=== PATIENT | female | born 1980 | race Caucasian/White ===

== ENCOUNTER 2016-10-13 10:39 | Emergency (ER) | payer OTHER ==
--- NOTE | 2016-10-13 11:47 | ER Document Report ---
ED General - General Chief Complaint: Neck and Upper Back Pain Stated Complaint: BACK PAIN Time Seen by Provider: 10/13/16 11:45 Mode of Arrival: Ambulatory Information source: Patient Notes: Patient's a 35-year-old white female who presents with mid thoracic "spine" pain. She states that started yesterday as an ache and progressively worsened to a sharp stabbing pain that woke her up around 1 AM this morning. She states she took a hydrocodone at that time and she is unsure for provided relief but she was able to get back to sleep. He states later when she woke up she had to have her son help her out of bed. She was seen at urgent care who did x-rays and told her that everything was fine and was referred over to the emergency room for further evaluation. She denies any fever, chills, numbness, weakness, paresthesias to extremities, bowel or bladder incontinence, saddle paresthesias , chest pain or shortness of breath. Denies any recent falls, injuries, heavy lifting. TRAVEL OUTSIDE OF THE [place] IN LAST 30 DAYS: No - Related Data Allergies/Adverse Reactions: No Known Allergies Allergy (Verified 10/13/16 10:40) Past Medical History - General Information source: Patient - Social History Smoking Status: Unknown if Ever Smoked Family History: Other Patient has suicidal ideation: No Patient has homicidal ideation: No Neurological Medical History: Reports: Hx Migraine Renal/ Medical History: Denies: Hx Peritoneal Dialysis Past Surgical History: Reports: Hx Orthopedic Surgery - knee - Immunizations Hx Diphtheria, Pertussis, Tetanus Vaccination: Yes Review of Systems - Review of Systems Constitutional: See HPI EENT: No symptoms reported Cardiovascular: No symptoms reported Respiratory: No symptoms reported Gastrointestinal: No symptoms reported Genitourinary: No symptoms reported Female Genitourinary: No symptoms reported Musculoskeletal: See HPI Skin: No symptoms reported Hematologic/Lymphatic: No symptoms reported Neurological/Psychological: See HPI Physical Exam - Vital signs Vitals: Temp Pulse Resp BP Pulse Ox 98.4 F 105 H 18 145/81 H 97 10/13/16 10:41 10/13/16 10:41 10/13/16 10:41 10/13/16 10:41 10/13/16 10:41 Interpretation: Hypertensive - Notes Notes: PHYSICAL EXAM: CONSTITUTIONAL: Alert and oriented, well-appearing and in no acute distress. HENT: Normocephalic, atraumatic. Trachea midline. Uvula midline. Moist mucous membranes. EYES: Pupils equal round and reactive to light, EOM intact. Sclera anicteric, conjunctiva are normal. No entrapment. NECK: supple without lymphadenopathy. No cervical midline tenderness no paraspinous muscle spasms. No step-offs or deformities. ROM intact. HEART: Regular rate and rhythm without murmurs. LUNGS: CTAB and equal. No wheezes, rales or rhonchi. GI: Normactive bowel sounds. Nontender, non-distended. No organomegaly. no CVAT. BACK: Thoracic midline tenderness to palpation along T3-T5 , no paraspinous spasm, 5+/5 strengths in all 4 extremities, DTRs 2+, SLR -. EXTREMITIES: Normal range of motion, no pitting edema. No cyanosis. Cap Refill < 3 seconds. NEURO: Cranial nerves grossly intact. Normal sensory/motor exams. Sensation to soft touch intact. PSYCH: Normal mood, normal affect. SKIN: Warm and dry. Normal turgor. No rashes or lesions noted. Course - Re-evaluation Re-evalutation: 10/13/16 12:18 Patient seen and examined. No focal neuro deficits on exam. Tender to palpation of thoracic spine T3 through T5. No step-offs or deformities. Minimal paraspinous muscle spasms. Range of motion in upper and lower extremities intact. Given oral pain medication here. 10/13/16 13:21 Reviewed thoracic spine imaging studies - negative for acute abnormalities. Discussed results with patient - advised that we ruled out emergent conditions such as epidural abscess, spinal cord compression, fracture, dislocation, or cauda equine syndrome. Advised patient to follow-up with PMD for referral for MRI. We will provide prescriptions for anti-inflammatories and muscle relaxers. At this time, will discharge with return precautions and follow-up recommendations. Verbal discharge instructions given at the bedside and opportunity for questions given. Medication warnings reviewed. Patient is in agreement with this plan and has verbalized understanding of return precautions and the need for primary care follow-up in the next 24-72 hours. - Vital Signs Vital signs: Temp Pulse Resp BP Pulse Ox 98.4 F 105 H 18 145/81 H 97 10/13/16 10:41 10/13/16 10:41 10/13/16 10:41 10/13/16 10:41 10/13/16 10:41 Discharge - Discharge Clinical Impression: Mid-back pain, acute Additional Instructions: BACK PAIN: Three out of every four people will have an episode of disabling back pain during their lifetime. Most commonly the pain is due to straining of the muscles and ligaments in the low back. Usual treatment includes: (1) Rest on a firm surface. Avoid lying on your stomach. (2) Ice pack the painful area. After a few days, gentle heat may be used intermittently to relax the area, or ice packs can be continued. (3) Medication may be needed -- muscle relaxers and antiinflammatory medicines are commonly used. (4) As the back improves, exercises are prescribed to strengthen the back and abdominal muscles. Your doctor will advise you on the proper care for your back at each stage in your recovery. You may be better in a few days -- or healing may take several weeks. If new symptoms of a "herniated disc" (radiation of pain, numbness, or tingling down the back of the leg or weakness in the leg) occur, you should be re-examined. Further testing may be necessary. ORAL NARCOTIC MEDICATION: You have been given a prescription for pain control. This medication is a narcotic. It's best taken with food, as nausea can result if taken on an empty stomach. Don't operate machinery or drive within six hours of taking this medication. Do not combine this medicine with alcohol, or with any medication which can cause sedation (such as cold tablets or sleeping pills) unless you get permission from the physician. Narcotics tend to cause constipation. If possible, drink plenty of fluids and eat a diet high in fiber and fruits. Please be aware that prescription narcotics also have the potential for abuse. People become addicted to these medications because of the general sense of wellbeing that they induce. This feeling along with a significant reduction in tension, anxiety, and aggression provides a stimulating seductive quality to these drugs. Once your pain is under control, we encourage you to discard your unused narcotics. MUSCLE RELAXERS: Muscle relaxing medications are usually prescribed for acute muscle spasm or injury to the neck and back. They are often combined with antiinflammatory pain medication for increased relief. You may stop the muscle relaxer when the pain and stiffness have improved. Start the medication again if spasms recur. Muscle relaxers may cause drowsiness, especially with the first dose. Do not operate machinery or drive while under the effects of the medication. Most muscle relaxers last up to 24 hours. Do not combine the medication with alcohol. ICE PACKS: Apply ice packs frequently against the painful area. Many different schedules are recommended, such as "20 minutes on, 20 minutes off" or "one hour ice, two hours rest." If you need to work, you may need to go longer between ice treatments. You should plan to have the area ice packed AT LEAST one fourth of the time. The ice should be applied over the wrap, tape, or splint, or over a layer of cloth -- not directly against the skin. Some ice bags have a built-in cloth and can be put directly on the skin. WARM PACKS: After approximately two days, apply gentle heat (such as a heating pad or hot water bottle) for about 20 to 30 minutes about every two hours -- at least four times daily. Warmth and elevation will help you make a more rapid recovery , and will ease the pain considerably. Do not use HOT heat, and never apply heat for longer than 30 minutes. The continuous heat can invisibly damage skin and muscles -- even when no burn is seen on the surface. Damaged muscles can make you MORE sore. FOLLOW-UP CARE: If you have been referred to a physician for follow-up care, call the physician s office for an appointment as you were instructed or within the next two days. If you experience worsening or a significant change in your symptoms, notify the physician immediately or return to the Emergency Department at any time for re-evaluation. Prescriptions: Oxycodone HCl/Acetaminophen [Percocet 5-325 mg Tablet] 1 tab PO Q6HP PRN #10 tablet PRN Reason: Diclofenac Sodium [Voltaren] 100 gm TP TID #1 gel..gm. Methocarbamol [Robaxin 500 mg Tablet] 500 mg PO TID #20 tablet Forms: Elevated Blood Pressure Referrals: PEGGY MINAYA FNP-C [Primary Care Provider] - Follow up in 3-5 days
[2016-10-13] MEDS ORDERED: OXYCODONE-ACETAMINOPHEN 5-325 MG TABLET PO ONE (12:14)
[2016-10-13 13:36] VITALS: BP 124/79
== END 2016-10-13 13:37 | disposition home or self-care (01) ==
LOC: ER 10:39
DX: M54.9 Dorsalgia, unspecified (principal); M54.2 Cervicalgia; M54.6 Pain in thoracic spine
CPT/HCPCS: 72070; 99283

== ENCOUNTER 2016-10-27 13:43 | Emergency (ER) | payer OTHER ==
[2016-10-27] MEDS ORDERED: METOCLOPRAMIDE HCL INJ/PF 10 MG/2 ML SDV IV ONE (14:44)
[2016-10-27] MEDS ORDERED: DIPHENHYDRAMINE HCL 50 MG/ML VIAL IV ONE (14:44)
[2016-10-27] MEDS ORDERED: KETOROLAC TROMETHAMINE INJ/PF 30 MG/1 ML SDV IV ONE (14:44)
[2016-10-27] MEDS ORDERED: NORMAL SALINE 1000 ML 1,000 ML IV ONE (14:44)
--- NOTE | 2016-10-27 14:46 | ER Document Report ---
ED Medical Screen (RME) - General Chief Complaint: Headache Stated Complaint: HEADACHE Time Seen by Provider: 10/27/16 14:41 Mode of Arrival: Wheelchair Information source: Patient Notes: pt c/o migraine AMANDA that started gradually yesterday and worsened today. Pt reports AMANDA is typical of usual migraines. Pt c/o photo/phonophobia. Pt reports n /v yesterday, none today. Pt took fioricet at 10 without relief hx Migraine TRAVEL OUTSIDE OF THE [place] IN LAST 30 DAYS: No - Related Data Allergies/Adverse Reactions: No Known Allergies Allergy (Verified 10/27/16 14:40) Past Medical History Neurological Medical History: Reports: Hx Migraine Renal/ Medical History: Denies: Hx Peritoneal Dialysis Past Surgical History: Reports: Hx Nose Surgery, Hx Orthopedic Surgery - knee - Immunizations Hx Diphtheria, Pertussis, Tetanus Vaccination: Yes Physical Exam - Vital signs Vitals: Temp Pulse Resp BP Pulse Ox 97.7 F 83 18 124/80 99 10/27/16 13:52 10/27/16 13:52 10/27/16 13:52 10/27/16 13:52 10/27/16 13:52 - Neurological Neuro grossly intact: Yes Lindstrom Coma Scale Eye Opening: Spontaneous Lindstrom Coma Scale Verbal: Oriented Lindstrom Coma Scale Motor: Obeys Commands Ruddy Coma Scale Total: 15 Course - Vital Signs Vital signs: Temp Pulse Resp BP Pulse Ox 97.7 F 83 18 124/80 99 10/27/16 13:52 10/27/16 13:52 10/27/16 13:52 10/27/16 13:52 10/27/16 13:52
[2016-10-27] MEDS ORDERED: ONDANSETRON 4 MG TAB.RAPDIS PO ONE (16:37)
[2016-10-27] MEDS ORDERED: NALBUPHINE HCL INJ 10 MG/1 ML AMPULE INJ ONE (16:38)
--- NOTE | 2016-10-27 16:43 | ER Document Report ---
ED Headache - General Chief Complaint: Headache Stated Complaint: HEADACHE Time Seen by Provider: 10/27/16 14:41 Mode of Arrival: Wheelchair Information source: Patient TRAVEL OUTSIDE OF THE [place] IN LAST 30 DAYS: No - HPI Patient complains to provider of: "Migraine" Onset: Just prior to arrival Onset was: Gradual, Other - This is a 35-year-old female presented to the emergency room today stating she had a migraine she has a history of migraines is that this migraine is the same as all her other ones that is frontal in nature she did have some nausea with it. - Related Data Allergies/Adverse Reactions: No Known Allergies Allergy (Verified 10/27/16 14:40) Past Medical History - General Information source: Patient - Social History Smoking Status: Current Every Day Smoker Cigarette use (# per day): No Chew tobacco use (# tins/day): No Smoking Education Provided: No Family History: Other Neurological Medical History: Reports: Hx Migraine Renal/ Medical History: Denies: Hx Peritoneal Dialysis Past Surgical History: Reports: Hx Nose Surgery, Hx Orthopedic Surgery - knee - Immunizations Hx Diphtheria, Pertussis, Tetanus Vaccination: Yes Review of Systems - Review of Systems Constitutional: No symptoms reported EENT: No symptoms reported Cardiovascular: No symptoms reported Respiratory: No symptoms reported Gastrointestinal: No symptoms reported Genitourinary: No symptoms reported Female Genitourinary: No symptoms reported Musculoskeletal: No symptoms reported Skin: No symptoms reported Hematologic/Lymphatic: No symptoms reported Neurological/Psychological: No symptoms reported Physical Exam - Vital signs Vitals: Temp Pulse Resp BP Pulse Ox 97.7 F 83 18 124/80 99 10/27/16 13:52 10/27/16 13:52 10/27/16 13:52 10/27/16 13:52 10/27/16 13:52 Interpretation: Normal - General General appearance: Appears well, Alert - HEENT Head: Normocephalic, Atraumatic Eyes: Normal Pupils: PERRL - Respiratory Respiratory status: No respiratory distress Chest status: Nontender Breath sounds: Normal Chest palpation: Normal - Cardiovascular Rhythm: Regular Heart sounds: Normal auscultation Murmur: No - Abdominal Inspection: Normal Distension: No distension Bowel sounds: Normal Tenderness: Nontender Organomegaly: No organomegaly - Back Back: Normal, Nontender - Extremities General upper extremity: Normal inspection, Nontender, Normal color, Normal ROM , Normal temperature General lower extremity: Normal inspection, Nontender, Normal color, Normal ROM , Normal temperature, Normal weight bearing. No: Mariam's sign - Neurological Neuro grossly intact: Yes Cognition: Normal Orientation: AAOx4 Ruddy Coma Scale Eye Opening: Spontaneous [place] Coma Scale Verbal: Oriented [place] Coma Scale Motor: Obeys Commands Ruddy Coma Scale Total: 15 Speech: Normal Motor strength normal: LUE, RUE, LLE, RLE Sensory: Normal - Psychological Associated symptoms: Normal affect, Normal mood - Skin Skin Temperature: Warm Skin Moisture: Dry Skin Color: Normal Course - Re-evaluation Re-evalutation: 10/27/16 16:42 As no fever No photophobia No nuchal rigidity No gross emesis. No petechiae. States that this is the same headache that she always has frontal in nature associated with some nausea - Vital Signs Vital signs: Temp Pulse Resp BP Pulse Ox 97.7 F 83 18 124/80 99 10/27/16 13:52 10/27/16 13:52 10/27/16 13:52 10/27/16 13:52 10/27/16 13:52 Discharge - Discharge Disposition: HOME, SELF-CARE Instructions: Headache ([facility]), Pain Medication Injection ([facility]) Additional Instructions: Headache The physician does not feel that the headache you are experiencing has a serious underlying cause. Most headaches are due to emotional stress, with resultant muscle tension (tension headache). Occasionally, headaches are secondary to changes in the blood vessels of the scalp (vascular headache and migraine headache). Sometimes, a headache is the first symptom of another developing illness, such as a viral infection. You have no evidence of stroke, bleeding, meningitis, or other serious cause of your headache. The treatment of headaches varies with the severity and cause of the pain. Not all headaches need pain shots. In fact, there is evidence that using narcotics for headaches may make them worse in the long run. The physician will determine the therapy that's in your best interest. If you develop a fever, if the headache is different from any you've previously experienced, or if the headache progressively worsens, then call your physician at once or go to the emergency room. Follow-up with private doctor in 1 to 2 days for final radiology readings please return to the emergency room for any change worsening condition. Follow up with private [facility] for all other routine health care needs. Prescriptions: Ondansetron [Zofran Odt 4 mg Tablet] 1 - 2 tab PO Q4H PRN #15 tab.rapdis PRN Reason: For Nausea/Vomiting
[2016-10-27 17:21] VITALS: BP 120/74
== END 2016-10-27 17:19 | disposition home or self-care (01) ==
LOC: ER 13:43
DX: G43.901 Migraine, unspecified, not intractable, with status migrainosus (principal); F17.200 Nicotine dependence, unspecified, uncomplicated; R11.0 Nausea
CPT/HCPCS: 99283; 96372; S0119; J2300

== ENCOUNTER 2017-04-26 16:33 | Emergency (ER) | payer OTHER ==
[2017-04-26] MEDS ORDERED: KETOROLAC TROMETHAMINE INJ/PF 30 MG/1 ML SDV IV ONE (17:25)
[2017-04-26] MEDS ORDERED: PROCHLORPERAZINE EDISYLATE INJ 10 MG/2 ML VIAL IV ONE (17:25)
[2017-04-26] MEDS ORDERED: DIPHENHYDRAMINE HCL 50 MG/ML VIAL IV ONE (17:25)
--- NOTE | 2017-04-26 18:57 | ER Document Report ---
ED General - General Chief Complaint: Headache Stated Complaint: HEADACHE Time Seen by Provider: 04/26/17 17:07 Mode of Arrival: Ambulatory Information source: Patient Notes: 36 yr old female presents with hx of migraine headaches with complaints of migraine. pt notes this is similar ot her previous migraines admits to visual aura and light sensitivity. denies any fevers or chills, denies this being any different from previous. pt is supposed to be on topamax but had run out for the past 4 days and finally got the refill today. TRAVEL OUTSIDE OF THE [place] IN LAST 30 DAYS: No - HPI Onset: Yesterday Onset/Duration: Persistent Quality of pain: Achy Severity: Mild Pain Level: 1 Associated symptoms: Headache Exacerbated by: Other Relieved by: Denies Similar symptoms previously: Yes Recently seen / treated by doctor: Yes - Related Data Allergies/Adverse Reactions: No Known Allergies Allergy (Verified 10/27/16 14:40) Past Medical History - Social History Smoking Status: Never Smoker Cigarette use (# per day): No Chew tobacco use (# tins/day): No Smoking Education Provided: No Frequency of alcohol use: None Drug Abuse: None Family History: Other Patient has suicidal ideation: No Patient has homicidal ideation: No Neurological Medical History: Reports: Hx Migraine Renal/ Medical History: Denies: Hx Peritoneal Dialysis Past Surgical History: Reports: Hx Nose Surgery, Hx Orthopedic Surgery - knee - Immunizations Hx Diphtheria, Pertussis, Tetanus Vaccination: Yes Review of Systems - Review of Systems Notes: REVIEW OF SYSTEMS: CONSTITUTIONAL : Denies fever, chills, or sweats. Denies recent illness. EENT: Denies eye, ear, throat, or mouth pain or symptoms. Denies nasal or sinus congestion or discharge. Denies throat, tongue, or mouth swelling or difficulty swallowing. CARDIOVASCULAR: Denies chest pain. Denies palpitations or racing or irregular heart beat. Denies ankle edema. RESPIRATORY: Denies cough, cold, or chest congestion. Denies shortness of breath, difficulty breathing, or wheezing. GASTROINTESTINAL: Denies abdominal pain or distention. Denies nausea, vomiting , or diarrhea. Denies blood in vomitus, stools, or per rectum. Denies black, tarry stools. Denies constipation. GENITOURINARY: Denies difficulty urinating, painful urination, burning, frequency, blood in urine, or discharge. FEMALE GENITOURINARY: Denies vaginal bleeding, heavy or abnormal periods, irregular periods. Denies vaginal discharge or odor. MUSCULOSKELETAL: Denies back or neck pain or stiffness. Denies joint pain or swelling. SKIN: Denies rash, lesions or sores. HEMATOLOGIC : Denies easy bruising or bleeding. LYMPHATIC: Denies swollen, enlarged glands. NEUROLOGICAL: Admits to headache PSYCHIATRIC: Denies anxiety or stress. Denies depression, suicidal ideation, or homicidal ideation. ALL OTHER SYSTEMS REVIEWED AND NEGATIVE. PHYSICAL EXAMINATION: GENERAL: Well-appearing, well-nourished and in no acute distress. HEAD: Atraumatic, normocephalic. EYES: Pupils equal round and reactive to light, extraocular movements intact, conjunctiva are normal. ENT: Nares patent, oropharynx clear without exudates. Moist mucous membranes. NECK: Normal range of motion, supple without lymphadenopathy LUNGS: Breath sounds clear to auscultation bilaterally and equal. No wheezes rales or rhonchi. HEART: Regular rate and rhythm without murmurs ABDOMEN: Soft, nontender, nondistended abdomen. No guarding, no rebound. No masses appreciated. Female : deferred Musculoskeletal: Normal range of motion, no pitting or edema. No cyanosis. NEUROLOGICAL: Cranial nerves grossly intact. Normal speech, normal gait. Normal sensory, motor exams PSYCH: Normal mood, normal affect. SKIN: Warm, Dry, normal turgor, no rashes or lesions noted. Dictation was performed using [employer] voice recognition software Physical Exam - Vital signs Vitals: Temp Pulse Resp BP Pulse Ox 98.4 F 76 20 132/82 H 98 04/26/17 16:40 04/26/17 16:40 04/26/17 16:40 04/26/17 16:40 04/26/17 16:40 Course - Re-evaluation Re-evalutation: 04/26/17 18:56 Patient given migraine cocktail otherwise well-appearing stable no distress 04/26/17 19:33 Patient was given migraine cocktail notes her headache is resolved. I will discharge him at this time at the request After performing a Medical Screening Examination, I estimate there is LOW risk for ACUTE GLAUCOMA, TEMPORAL ARTERITIS, MENINGITIS, INCRANIAL HEMORRHAGE, or ISCHEMIC STROKE thus I consider the discharge disposition reasonable. I have reevaluated this patient multiple times and no significant life threatening changes are noted. The patient and I have discussed the diagnosis and risks, and we agree with discharging home with close follow-up with the understanding that symptoms and presentations can change. We also discussed returning to the Emergency Department immediately if new or worsening symptoms occur. We have discussed the symptoms which are most concerning (e.g., changing or worsening symptoms, new numbness or weakness, vomiting, fever) that necessitate immediate return. - Vital Signs Vital signs: Temp Pulse Resp BP Pulse Ox 98.4 F 76 20 132/82 H 98 04/26/17 16:40 04/26/17 16:40 04/26/17 16:40 04/26/17 16:40 04/26/17 16:40 Discharge - Discharge Clinical Impression: Migraine headache Qualifiers: Migraine type: unspecified Status migrainosus presence: without status migrainosus Intractability: not intractable Qualified Code(s): G43.909 - Migraine, unspecified, not intractable, without status migrainosus Condition: Stable Disposition: HOME, SELF-CARE Instructions: Headache ([facility]) Additional Instructions: Follow up with your physician tomorrow for further care or return to the ED IMMEDIATELY if symptoms worsen or new concerns occur. If you cannot afford to follow up with your primary care physician a list of low cost clinics have been provided at the end of your discharge papers as well.
[2017-04-26 19:39] VITALS: BP 101/71
== END 2017-04-26 19:41 | disposition home or self-care (01) ==
LOC: ER 16:33
DX: G43.909 Migraine, unspecified, not intractable, without status migrainosus (principal)
CPT/HCPCS: 99283; J1200; J1885; J0780

== ENCOUNTER 2018-06-15 13:31 | Emergency (ER) | payer OTHER ==
[2018-06-15] MEDS ORDERED: DIPHENHYDRAMINE HCL 50 MG/ML VIAL IV ONE (13:37)
[2018-06-15] MEDS ORDERED: NORMAL SALINE 1000 ML 1,000 ML IV ONE (13:37)
[2018-06-15] MEDS ORDERED: METOCLOPRAMIDE HCL INJ/PF 10 MG/2 ML SDV IV ONE (13:37)
[2018-06-15] MEDS ORDERED: DEXAMETHASONE SOD PHOS INJ 10 MG/1 ML VIAL IV ONE (14:52)
[2018-06-15] MEDS ORDERED: KETOROLAC TROMETHAMINE INJ/PF 30 MG/1 ML SDV IV ONE (14:52)
--- NOTE | 2018-06-15 14:56 | ER Document Report ---
ED Headache - General Chief Complaint: Headache Stated Complaint: HEADACHE Time Seen by Provider: 06/15/18 14:44 TRAVEL OUTSIDE OF THE [place] IN LAST 30 DAYS: No - HPI Notes: Patient is a 37-year-old female that presents to the emergency department for chief complaint of migraine headache. Patient has history of chronic migraines. She has seen neurology and is in the process of getting her medications changed. She states Topamax is making her hair fall out and they are now switching her to a new one time a month injection. She has tried multiple other migraine medications in the past but has persistent difficult to treat migraines. She states this current migraine started 2 days ago. The pain is on the right side of her head and occiput. She has photophobia and phonophobia. She states this headache was gradual in onset and feels identical to previous migraines in the past. Past Medical History: Migraines, insulin resistance Past Surgical History: Knee surgery, sinus surgery Social History: Denies drugs alcohol and tobacco Family History: Reviewed and noncontributory for presenting illness Allergies: Reviewed, see documented allergy list. REVIEW OF SYSTEMS: CONSTITUTIONAL : No fever No chills No diaphoresis No recent illness EENT: No vision changes No congestion No sore throat CARDIOVASCULAR: No chest pain No palpitations RESPIRATORY: No shortness of breath No cough No difficulty breathing GASTROINTESTINAL: No abdominal pain No nausea No vomiting No diarrhea GENITOURINARY: No dysuria No hematuria No difficulty urinating MUSCULOSKELETAL: No back pain No leg pain No arm pain SKIN: No rashes No lesions LYMPHATIC: No swollen, enlarged glands. NEUROLOGICAL: No lightheadedness headache No weakness No paresthesias PSYCHIATRIC: No anxiety No depression PHYSICAL EXAMINATION: Vital signs reviewed, nursing noted reviewed. GENERAL: Well-appearing, well-nourished and in no acute distress. HEAD: Atraumatic, normocephalic. EYES: Eyes appear normal, extraocular movements intact, sclera anicteric, conjunctiva are normal. ENT: nares patent, oropharynx clear without exudates. Moist mucous membranes. NECK: Normal range of motion, supple without lymphadenopathy LUNGS: Breath sounds clear to auscultation bilaterally and equal. No wheezes rales or rhonchi. HEART: Regular rate and rhythm without murmurs ABDOMEN: Soft, nontender, normoactive bowel sounds. No rebound, guarding, or rigidity. No masses appreciated. EXTREMITIES: Nontender, good range of motion, no pitting or edema. NEUROLOGICAL: No focal neurological deficits. Moves all extremities spontaneously Motor and sensory grossly intact on exam. PSYCH: Normal mood, normal affect. SKIN: Warm, Dry, normal turgor, no rashes or lesions noted on exposed skin - Related Data Allergies/Adverse Reactions: No Known Allergies Allergy (Verified 10/27/16 14:40) Past Medical History - Social History Smoking Status: Never Smoker Chew tobacco use (# tins/day): No Frequency of alcohol use: None Drug Abuse: None Family History: Other Patient has suicidal ideation: No Patient has homicidal ideation: No Neurological Medical History: Reports: Hx Migraine Renal/ Medical History: Denies: Hx Peritoneal Dialysis Past Surgical History: Reports: Hx Nose Surgery, Hx Orthopedic Surgery - knee - Immunizations Hx Diphtheria, Pertussis, Tetanus Vaccination: Yes Physical Exam - Vital signs Vitals: Temp Pulse Resp BP Pulse Ox 99.1 F 110 H 16 146/91 H 96 06/15/18 13:36 06/15/18 13:36 06/15/18 13:36 06/15/18 13:36 06/15/18 13:36 Course - Re-evaluation Re-evalutation: 06/15/18 14:55 Vitals reviewed. Nursing notes reviewed. Patient was given IV fluids, Reglan and Benadryl for symptom medic management. She states this did significantly improve her symptoms. Her headache feels identical to previous migraines in the past and she denies any new characteristics to her migraine. She has no focal neurologic deficit. Further workup of her headache today is not indicated. Patient states she is feeling much better but is still having some discomfort. She will be given Toradol and Decadron for further pain management. She will call her pharmacy to see if her new prescription is ready to be picked up. She will call her neurologist for close follow-up. Patient is stable at time of discharge. - Vital Signs Vital signs: Temp Pulse Resp BP Pulse Ox 99.1 F 110 H 16 146/91 H 96 06/15/18 13:36 06/15/18 13:36 06/15/18 13:36 06/15/18 13:36 06/15/18 13:36 Discharge - Discharge Clinical Impression: Migraine Qualifiers: Migraine type: other Status migrainosus presence: without status migrainosus Intractability: not intractable Qualified Code(s): G43.809 - Other migraine, not intractable, without status migrainosus Condition: Stable Disposition: HOME, SELF-CARE Instructions: Headache ([facility]) Additional Instructions: Please return to the emergency department if you have any worsening, or concern of your symptoms. Please return to the emergency department if you develop chest pain, difficulty breathing, severe abdominal pain, or ongoing vomiting. Please follow-up with your primary care physician in 2-3 days and any other recommended physicians. If prescribed, take all medications as directed. If you have any questions or concerns do not hesitate to return the emergency department for evaluation. Follow-up with your neurologist for reevaluation if your migraine persists Call your pharmacy to see if your new migraine medication is available.
[2018-06-15 15:15] VITALS: BP 120/76
== END 2018-06-15 15:24 | disposition home or self-care (01) ==
LOC: ER 13:31
DX: G43.909 Migraine, unspecified, not intractable, without status migrainosus (principal)
CPT/HCPCS: 99283; 96361; 96374; 96375; J1200; J1885; J2765; J7030; J1100

== ENCOUNTER 2018-09-18 10:35 | Emergency (ER) | payer OTHER ==
[2018-09-18 10:52] VITALS: BP 137/92
[2018-09-18] MEDS ORDERED: METOCLOPRAMIDE HCL INJ/PF 10 MG/2 ML SDV IM ONE (11:15)
[2018-09-18] MEDS ORDERED: KETOROLAC TROMETHAMINE INJ/PF 30 MG/1 ML SDV IM ONE (11:15)
[2018-09-18] MEDS ORDERED: DIPHENHYDRAMINE HCL 50 MG/ML VIAL IM ONE (11:15)
--- NOTE | 2018-09-18 11:20 | ER Document Report ---
ED Headache - General Chief Complaint: Headache Stated Complaint: HEADACHE Time Seen by Provider: 09/18/18 11:10 Primary Care Provider: JOSH ROSARIO MD [Primary Care Provider] - Follow up as needed TRAVEL OUTSIDE OF THE [place] IN LAST 30 DAYS: No - HPI Patient complains to provider of: Headache, "Migraine" Notes: Patient is here with complaints of headache. The patient has a long history of migraines and states that she started having a headache yesterday. This feels exactly like her previous migraines that she has had in the past. She denies any recent head injury or fall. She is not on blood thinning medications. She denies any fever. No neck stiffness. She has had nausea, but denies any vomiting or diarrhea. She denies any rash. No chest pain or shortness of breath. No abdominal pain. No blurred or loss vision. No unilateral numbness, tingling, weakness. This was not a sudden onset, thunderclap type headache. It was gradual on onset and has progressively gotten worse. The headache is generalized, moderate to severe, worse with light, nothing makes it better. She denies any other specific complaints at this time. - Related Data Allergies/Adverse Reactions: No Known Allergies Allergy (Verified 09/18/18 10:36) Past Medical History - Social History Smoking Status: Never Smoker Frequency of alcohol use: Social Drug Abuse: None Family History: Other Patient has suicidal ideation: No Patient has homicidal ideation: No Neurological Medical History: Reports: Hx Migraine Endocrine Medical History: Reports: Hx Diabetes Mellitus Type 2 Renal/ Medical History: Denies: Hx Peritoneal Dialysis Past Surgical History: Reports: Hx Nose Surgery, Hx Orthopedic Surgery - knee - Immunizations Hx Diphtheria, Pertussis, Tetanus Vaccination: Yes Review of Systems - Review of Systems -: Yes All other systems reviewed and negative Physical Exam - Vital signs Vitals: Temp Pulse Resp BP Pulse Ox 98.3 F 102 H 18 137/92 H 100 09/18/18 10:52 09/18/18 10:52 09/18/18 10:52 09/18/18 10:52 09/18/18 10:52 - Notes Notes: GENERAL: alert, cooperative, nontoxic, no distress. HEAD: normocephalic, atraumatic EYES: conjunctiva pink without discharge, no external redness or swelling. Pupils are equal, round, reactive to light. EARS: no external swelling, no external redness NOSE: atraumatic, no external swelling MOUTH/THROAT: mucous membranes moist and pink, posterior pharynx without erythema, swelling, exudate. No trismus or drooling. NECK: soft, supple, full range of motion, no meningismus. CHEST: no distress, lungs clear and equal throughout. No wheezing, rales, rhonchi. CARDIAC: regular rate and rhythm, no murmur, normal capillary refill, normal pulses. No peripheral edema noted. BACK: full range of motion, no CVA tenderness. EXTREMITIES: full range of motion of all extremities. No redness, no swelling. NEURO: alert and oriented x 3, cranial nerves II through XII are grossly intact. Upper and lower extremities are equal throughout. Normal sensation. No focal deficits, full range of motion of all extremities. normal finger to nose. PYSCH: appropriate mood, affect. Patient is cooperative. SKIN: pink, warm, dry, no rash. Course - Re-evaluation Re-evalutation: 09/18/18 11:17 Patient is nontoxic-appearing with stable vitals. Patient here with complaints of migraine headache. The patient has a long history of migraines, this headache started yesterday and feels exactly like previous migraine she has had in the past. She denies sudden onset or thunderclap in nature. No fevers. No blood thinners. No sign or risk of subarachnoid hemorrhage, meningitis, intracerebral hemorrhage or other serious source of her headache. She has a nonfocal neurological exam to time. I offered to give the patient a migraine cocktail and let her go home and sleep in a dark quiet room at her house or keep her here for a longer period of time and reevaluate her. She states that she would prefer to go ahead and get medications and go home so that she can go home and go to bed. I do believe that this is reasonable as the patient has a history of migraine deals like her normal headaches. Patient will be given Toradol, Reglan, Benadryl and will be discharged home. She is instructed to return immediately if she has worsening pain, blurred or loss vision, numbness, tingling, weakness, persistent vomiting, neck stiffness, fever, or any further concerns. The patient's emergency department workup and current diagnosis were explained to the patient and or family. Follow-up instructions were provided. Medications if prescribed were discussed. Instructions for when to return to the emergency department including specific worrisome symptoms were discussed with the patient and/or family. - Vital Signs Vital signs: Temp Pulse Resp BP Pulse Ox 98.3 F 102 H 18 137/92 H 100 09/18/18 10:52 09/18/18 10:52 09/18/18 10:52 09/18/18 10:52 09/18/18 10:52 Discharge - Discharge Clinical Impression: Migraine Qualifiers: Migraine type: unspecified Status migrainosus presence: without status migrainosus Intractability: not intractable Qualified Code(s): G43.909 - Migraine, unspecified, not intractable, without status migrainosus Condition: Stable Disposition: HOME, SELF-CARE Instructions: Headache ([facility]) Additional Instructions: Go home and rest in a quiet dark room. May take Tylenol as needed. Drink plenty fluids. Follow-up with your doctor as needed. Return to the emergency department if you develop worsening pain, fever, neck stiffness, numbness, Iron, weakness on one side your body, or for any further concerns. Forms: Elevated Blood Pressure, Smoking Cessation Education Referrals: JOSH ROSARIO MD [Primary Care Provider] - Follow up as needed
== END 2018-09-18 11:38 | disposition home or self-care (01) ==
LOC: ER 10:35
DX: G43.909 Migraine, unspecified, not intractable, without status migrainosus (principal); R11.0 Nausea; E11.9 Type 2 diabetes mellitus without complications
CPT/HCPCS: 99283; 96372; J1200; J1885; J2765

== ENCOUNTER 2018-10-04 21:31 | Emergency (ER) | payer OTHER ==
[2018-10-04] MEDS ORDERED: KETOROLAC TROMETHAMINE INJ/PF 30 MG/1 ML SDV IM ONE (23:17)
--- NOTE | 2018-10-04 23:21 | ER Document Report ---
ED Extremity Problem, Lower - General Chief Complaint: Leg Swelling Stated Complaint: SWOLLEN LEG Time Seen by Provider: 10/04/18 23:11 Primary Care Provider: JOSH ROSARIO MD [Primary Care Provider] - Follow up as needed TRAVEL OUTSIDE OF THE [place] IN LAST 30 DAYS: No - HPI Notes: Patient is a 37-year-old female that presents to the emergency department for chief complaint of right leg edema. Patient states she has had increased activity and walking over the last few days. She has noticed increased pain in her right knee for the last few days as well. This evening she states that she started to have a "tense feeling" in her right calf and foot. She also describes a burning pain in the right calf and foot. She has not taken any medication for pain. She denies using ice or heat. She denies aggravating or relieving factors. She denies history of DVT/PE. She is not on any exogenous estrogens. She denies history of cancer or recent surgery/prolonged immobilization and hospitalizations. Patient denies any chest pain or shortness of breath. She states she is uncomfortable and feels like she cannot find a position of these. Past Medical History: Diabetes Past Surgical History: Right knee meniscal repair Social History: Denies drugs alcohol and tobacco Family History: Reviewed and noncontributory for presenting illness Allergies: Reviewed, see documented allergy list. REVIEW OF SYSTEMS: CONSTITUTIONAL : No fever No chills No diaphoresis No recent illness EENT: No vision changes No congestion No sore throat CARDIOVASCULAR: No chest pain No palpitations RESPIRATORY: No shortness of breath No cough No difficulty breathing GASTROINTESTINAL: No abdominal pain No nausea No vomiting No diarrhea GENITOURINARY: No dysuria No hematuria No difficulty urinating MUSCULOSKELETAL: No back pain leg pain No arm pain SKIN: No rashes No lesions LYMPHATIC: No swollen, enlarged glands. NEUROLOGICAL: No lightheadedness No headache No weakness No paresthesias PSYCHIATRIC: No anxiety No depression PHYSICAL EXAMINATION: Vital signs reviewed, nursing noted reviewed. GENERAL: Well-appearing, obese and in no acute distress. HEAD: Atraumatic, normocephalic. EYES: Eyes appear normal, extraocular movements intact, sclera anicteric, conjunctiva are normal. ENT: nares patent, oropharynx clear without exudates. Moist mucous membranes. NECK: Normal range of motion, supple without lymphadenopathy LUNGS: Breath sounds clear to auscultation bilaterally and equal. No wheezes rales or rhonchi. HEART: Tachycardic rate and regular rhythm without murmurs ABDOMEN: Soft, nontender, normoactive bowel sounds. No rebound, guarding, or rigidity. No masses appreciated. EXTREMITIES: Right knee effusion and tenderness to palpation of joint line and patella with normal range of motion. No right knee erythema or Calor. Tenderness to palpation of right calf with no discernible edema. Lower extremities equal in size. No right foot tenderness. NEUROLOGICAL: No focal neurological deficits. Moves all extremities spontaneously Motor and sensory grossly intact on exam. PSYCH: Agitated, normal affect. SKIN: Warm, Dry, normal turgor, no rashes or lesions noted on exposed skin - Related Data Allergies/Adverse Reactions: No Known Allergies Allergy (Verified 09/18/18 10:36) Past Medical History - Social History Smoking Status: Never Smoker Family History: Other Neurological Medical History: Reports: Hx Migraine Endocrine Medical History: Reports: Hx Diabetes Mellitus Type 2 Renal/ Medical History: Denies: Hx Peritoneal Dialysis Past Surgical History: Reports: Hx Nose Surgery, Hx Orthopedic Surgery - knee - Immunizations Hx Diphtheria, Pertussis, Tetanus Vaccination: Yes Physical Exam - Vital signs Vitals: Temp Pulse Resp BP Pulse Ox 98.3 F 102 H 22 H 146/88 H 95 10/04/18 21:37 10/04/18 21:37 10/04/18 21:37 10/04/18 21:37 10/04/18 21:37 Course - Re-evaluation Re-evalutation: 10/04/18 23:21 Vitals reviewed. Nursing notes reviewed. Patient is uncomfortable appearing and was given Toradol for symptom medic management. She does have tenderness in the right knee with effusion and x-ray has been ordered given her recent increase in activity. Patient has no discernible lower extremity edema on physical exam but does have tenderness in her calf. She has no known risk factors for DVT and ultrasound to evaluate for DVT is not currently available. 10/05/18 00:07 X-ray shows degenerative changes in the right knee with no acute process. My suspicion for acute DVT is low and she is not requiring prophylactic anticoagulation prior to ultrasound. Patient was referred for outpatient venous duplex of her right leg tomorrow morning. She was counseled on returning to the emergency room for new or concerning symptoms. She is stable at time of discharge. Knee X-Ray 10/04/18 23:17 IMPRESSION: Mild tricompartmental degenerative change copyright 2011 [employer]- All Rights Reserved - Vital Signs Vital signs: Temp Pulse Resp BP Pulse Ox 98.3 F 102 H 22 H 146/88 H 95 10/04/18 21:37 10/04/18 21:37 10/04/18 21:37 10/04/18 21:37 10/04/18 21:37 Discharge - Discharge Clinical Impression: Leg edema, right Right knee pain Qualifiers: Chronicity: acute Qualified Code(s): M25.561 - Pain in right knee Condition: Stable Disposition: HOME, SELF-CARE Instructions: Edema, Peripheral ([facility]) Additional Instructions: Please return to the emergency department if you have any worsening, or concern of your symptoms. Please return to the emergency department if you develop chest pain, difficulty breathing, severe abdominal pain, or ongoing vomiting. Please follow-up with your primary care physician in 2-3 days and any other recommended physicians. If prescribed, take all medications as directed. If you have any questions or concerns do not hesitate to return the emergency department for evaluation. keep your right leg elevated and apply ice to affected area Take Tylenol and ibuprofen as needed for pain Return tomorrow to outpatient radiology for ultrasound of your right leg Forms: Follow-Up Radiology Testing Referrals: JOSH ROSARIO MD [Primary Care Provider] - Follow up in 3-5 days
--- NOTE | 2018-10-04 23:49 | RADIOLOGY REPORT (SQ) ---
EXAM DESCRIPTION: XR KNEE 3 VIEWS COMPLETED DATE/TME: 10/04/2018 23:17 CLINICAL HISTORY: 37 years, Female, pain COMPARISON: None. NUMBER OF VIEWS: 3 TECHNIQUE: 3 view right knee LIMITATIONS: None. FINDINGS: Negative for acute fracture or dislocation. Mild tricompartmental degenerative change with tricompartmental narrowing and spur formation IMPRESSION: Mild tricompartmental degenerative change copyright 2010 [employer]- All Rights Reserved
[2018-10-05 00:35] VITALS: BP 120/75
== END 2018-10-05 00:35 | disposition home or self-care (01) ==
LOC: ER 21:31
DX: R60.0 Localized edema (principal); M25.461 Effusion, right knee; M25.561 Pain in right knee; M79.661 Pain in right lower leg; M79.671 Pain in right foot; E11.9 Type 2 diabetes mellitus without complications; E66.9 Obesity, unspecified; R00.0 Tachycardia, unspecified
CPT/HCPCS: 99283; 96372; 82962; 73562; J1885

== ENCOUNTER → 2018-10-05 | Outpatient (CLI) | payer OTHER ==
--- NOTE | 2018-10-05 11:12 | RADIOLOGY REPORT (SQ) ---
EXAM DESCRIPTION: VENOUS UNILATERAL LOWER COMPLETED DATE/TIME: 10/05/2018 10:58 am REASON FOR STUDY: RLE SWELLING COMPARISON: None. TECHNIQUE: Dynamic and static mar scale and color images acquired of the right leg venous system. S elected spectral images acquired with additional compression and augmentation maneuvers. The contrala teral common femoral vein and saphenofemoral junction were also imaged. Images stored on PACS. LIMITATIONS: None. FINDINGS: COMMON FEMORAL: Normal phasicity, compression and augmentation. No visualized echogenic ma terial on mar scale. No defects on color images. FEMORAL: Normal compression and augmentation. No visualized echogenic material on mar scale. No defe cts on color images. POPLITEAL: Normal compression, augmentation. No visualized echogenic material on mar scale. No defec ts on color images. CALF VESSELS: Normal compression, augmentation. No visualized echogenic material on mar scale. No de fects on color images. GSV and SSV: Normal compression, augmentation. No visualized echogenic material on mar scale. No def ects on color images. ANY DEEP VENOUS INSUFFICIENCY: Not evaluated. ANY EVIDENCE OF POPLITEAL CYST: No. OTHER: No other significant finding. CONTRALATERAL COMMON FEMORAL VEIN AND SAPHENOFEMORAL JUNCTION: Normal phasicity, compression and augmentation. No visualized echogenic material on mar scale. No de fects on color images. IMPRESSION: NO EVIDENCE DVT OR SVT IN THE RIGHT LEG. TECHNICAL DOCUMENTATION: JOB ID: [id number] [employer]- All Rights Reserved Reading location - IP/workstation name: [email or web address]
== END ==
LOC: SP 09:16
PROVIDERS: ATTEND Emergency Medicine
DX: M79.89 Other specified soft tissue disorders (principal)
CPT/HCPCS: 93971

== ENCOUNTER 2019-03-07 18:43 | Emergency (ER) | payer OTHER ==
[2019-03-07] MEDS ORDERED: NORMAL SALINE 1000 ML 1,000 ML IV ONE (18:56)
[2019-03-07] MEDS ORDERED: ONDANSETRON HCL INJ/PF 4 MG/2 ML SDV IV ONE (18:56)
[2019-03-07] MEDS ORDERED: KETOROLAC TROMETHAMINE INJ/PF 30 MG/1 ML SDV IV ONE (18:56)
--- NOTE | 2019-03-07 18:56 | ER Document Report ---
ED Medical Screen (RME) - General Chief Complaint: Flank Pain Stated Complaint: FLANK PAIN Time Seen by Provider: 03/07/19 18:53 Primary Care Provider: KHADIJAH GOODMAN DO [Primary Care Provider] - Follow up as needed Mode of Arrival: Wheelchair Information source: Patient Notes: 38-year-old who presents to ED for left Flank pain. He denies any frequency urgency burning or burning with urine. She states she does not notice any blood in the urine. She states the pain started about 230 today. She states she does not have any history of kidney stones in the past. She states she has an IUD and does not know when her last cycle. Was. She states the pain started gradually and now is very acute pain scale of 5/your vomiting no patient states she is very nauseated but has not vomited. I have greeted and performed a rapid initial assessment of this patient. A comprehensive ED assessment and evaluation of the patient, analysis of test results and completion of medical decision making process will be conducted by an additional ED providers. TRAVEL OUTSIDE OF THE [place] IN LAST 30 DAYS: No - Related Data Allergies/Adverse Reactions: No Known Allergies Allergy (Verified 03/07/19 18:51) Past Medical History Neurological Medical History: Reports: Hx Migraine Endocrine Medical History: Reports: Hx Diabetes Mellitus Type 2 Renal/ Medical History: Denies: Hx Peritoneal Dialysis Past Surgical History: Reports: Hx Nose Surgery, Hx Orthopedic Surgery - knee - Immunizations Hx Diphtheria, Pertussis, Tetanus Vaccination: Yes Physical Exam - Vital signs Vitals: Temp Pulse Resp BP Pulse Ox 98.8 F 89 28 H 189/97 H 100 03/07/19 18:46 03/07/19 18:46 03/07/19 18:46 03/07/19 18:46 03/07/19 18:46 Course - Vital Signs Vital signs: Temp Pulse Resp BP Pulse Ox 98.8 F 89 28 H 189/97 H 100 03/07/19 18:46 03/07/19 18:46 03/07/19 18:46 03/07/19 18:46 03/07/19 18:46 Doctor's Discharge - Discharge Referrals: KHADIJAH GOODMAN DO [Primary Care Provider] - Follow up as needed
[2019-03-07 19:36] LABS: ABSOLUTE BASOPHILS # (AUTO) 0.1 10^3/uL (0.0-0.2); ABSOLUTE EOSINOPHILS # (AUTO) 0.1 10^3/uL (0.0-0.6); ABSOLUTE LYMPHOCYTES (AUTO) 1.9 10^3/uL (0.5-4.7); ABSOLUTE MONOCYTES (AUTO) 0.3 10^3/uL (0.1-1.4); ABSOLUTE NEUT (AUTO) 7.2 10^3/uL (1.7-8.2); BASOPHILS % (AUTO) 0.7 % (0-2); EOSINOPHILS % (AUTO) 1.3 % (0-6); HEMATOCRIT 46.9 % (36.0-47.0); HEMOGLOBIN 15.9 g/dL (12.0-15.5); LYMPHOCYTES % (AUTO) 19.9 % (13-45); MEAN CORPUSCULAR HEMOGLOBIN 29.2 pg (27.0-33.4); MEAN CORPUSCULAR HGB CONC 33.8 g/dL (32.0-36.0); MEAN CORPUSCULAR VOLUME 86 fl (80-97); MONOCYTES % (AUTO) 3.5 % (3-13); PLATELET COUNT 201 10^3/uL (150-450); RED BLOOD COUNT 5.43 10^6/uL (3.72-5.28); RED CELL DISTRIBUTION WIDTH 14.3 % (11.5-14.0); SEGMENTED NEUTROPHILS % (AUTO) 74.6 % (42-78); TOTAL CELLS COUNTED % (AUTO) 100 %; WHITE BLOOD COUNT 9.7 10^3/uL (4.0-10.5)
[2019-03-07 19:54] LABS: ALBUMIN 4.8 g/dL (3.5-5.0); ALKALINE PHOSPHATASE 82 U/L (38-126); ANION GAP 13 (5-19); ASPARTATE AMINO TRANSFERASE 25 U/L (14-36); BILIRUBIN,DIRECT 0.2 mg/dL (0.0-0.4); BILIRUBIN,TOTAL 0.5 mg/dL (0.2-1.3); BLOOD UREA NITROGEN 21 mg/dL (7-20); CALCIUM 11.8 mg/dL (8.4-10.2); CARBON DIOXIDE 20 mmol/L (22-30); CHLORIDE 105 mmol/L (98-107); GLUCOSE 98 mg/dL (75-110); TOTAL PROTEIN 7.9 g/dL (6.3-8.2)
[2019-03-07] MEDS ORDERED: MORPHINE SULFATE 10 MG/ML INJ IV ONE (20:42)
[2019-03-07] MEDS ORDERED: NORMAL SALINE 500 ML IV ONE (20:42)
--- NOTE | 2019-03-07 20:44 | RADIOLOGY REPORT (SQ) ---
EXAM DESCRIPTION: CT ABDOMEN PELVIS WITHOUT IV CONTRAST COMPLETED DATE/TME: 03/07/2019 18:57 CLINICAL HISTORY: 38 years, Female, left flank pain states has iud This exam was performed according to our departmental dose-optimization program which includes automated exposure control, adjustment of the mA and/or kVp according to patient size and/or use of iterative reconstruction technique where applicable. FINDINGS: Visualized lung bases are within normal limits. Liver, spleen, pancreas, gallbladder and adrenal glands are within normal limits. No biliary dilatation. Liver demonstrates mild diffuse hypodensity consistent with fatty infiltration. There is moderate left hydronephrosis. There is a 4 mm left UPJ calculus noted. Tiny nonobstructive left renal calculi. No right hydronephrosis. No dilated loops of bowel to suggest obstruction. Mild amount of stool in the colon. Appendix is normal. The gynecologic organs demonstrate IUD in place. No abdominal or pelvic lymphadenopathy. Abdominal aorta is within normal limits. No free fluid or free air. Left adnexal 4.3 cm cyst. IMPRESSION: 4 mm left UPJ calculus with moderate left hydronephrosis.
--- NOTE | 2019-03-07 21:01 | ER Document Report ---
ED General - General Chief Complaint: Flank Pain Stated Complaint: FLANK PAIN Time Seen by Provider: 03/07/19 18:53 Primary Care Provider: KHADIJAH GOODMAN DO [ACTIVE STAFF] - Follow up as needed Mode of Arrival: Wheelchair TRAVEL OUTSIDE OF THE [place] IN LAST 30 DAYS: No - HPI Notes: This is a 38-year-old female who presents today with a complaint of sudden onset colicky left flank pain that started earlier today. Associated symptoms include nausea. Patient also describes difficulty urinating. She denies any hematuria or dysuria. She denies any fever or chills. She denies any anterior abdominal pain. She denies any bowel or bladder incontinence. She describes her symptoms as moderate. Pain is worse with palpation and movement. She denies any previous history of kidney stones. - Related Data Allergies/Adverse Reactions: No Known Allergies Allergy (Verified 03/07/19 18:51) Past Medical History - General Information source: Patient - Social History Smoking Status: Never Smoker Chew tobacco use (# tins/day): No Frequency of alcohol use: None Drug Abuse: None Family History: Other Patient has suicidal ideation: No Patient has homicidal ideation: No Neurological Medical History: Reports: Hx Migraine Endocrine Medical History: Reports: Hx Diabetes Mellitus Type 2 Renal/ Medical History: Denies: Hx Peritoneal Dialysis Past Surgical History: Reports: Hx Nose Surgery, Hx Orthopedic Surgery - knee - Immunizations Hx Diphtheria, Pertussis, Tetanus Vaccination: Yes Review of Systems - Review of Systems Constitutional: denies: Fever Cardiovascular: denies: Chest pain, Palpitations Gastrointestinal: Nausea. denies: Abdominal pain, Diarrhea Genitourinary: Flank pain - Patient is. denies: Burning, Dysuria, Frequency, Urgency -: Yes All other systems reviewed and negative Physical Exam - Vital signs Vitals: Temp Pulse Resp BP Pulse Ox 98.8 F 89 28 H 189/97 H 100 03/07/19 18:46 03/07/19 18:46 03/07/19 18:46 03/07/19 18:46 03/07/19 18:46 - General General appearance: Appears well, Alert - Respiratory Respiratory status: No respiratory distress Chest status: Nontender Breath sounds: Normal Chest palpation: Normal - Cardiovascular Rhythm: Regular Heart sounds: Normal auscultation Murmur: No - Abdominal Inspection: Normal Distension: No distension Bowel sounds: Normal Tenderness: Other - There is slight left CVA tenderness. There is no anterior abdominal tenderness. Organomegaly: No organomegaly - Back Back: CVA tenderness - Neurological Neuro grossly intact: Yes Cognition: Normal Orientation: AAOx4 [place] Coma Scale Eye Opening: Spontaneous Ruddy Coma Scale Verbal: Oriented [place] Coma Scale Motor: Obeys Commands [place] Coma Scale Total: 15 Speech: Normal Motor strength normal: LUE, RUE, LLE, RLE Sensory: Normal - Psychological Associated symptoms: Normal affect, Normal mood - Skin Skin Temperature: Warm Skin Moisture: Dry Skin Color: Normal Course - Re-evaluation Re-evalutation: 03/07/19 21:01 Differential diagnosis includes renal colic versus sacroiliitis versus UTI. Will check CT. Check basic labs including urinalysis. 03/07/19 22:33 Patient reevaluated. She feels much better. Labs and CT reviewed and discussed. Follow-up discussed. We will put her on Flomax and pain medication. - Vital Signs Vital signs: Temp Pulse Resp BP Pulse Ox 98.8 F 89 28 H 189/97 H 100 03/07/19 18:46 03/07/19 18:46 03/07/19 18:46 03/07/19 18:46 03/07/19 18:46 - Laboratory Result Diagrams: 03/07/19 19:16 03/07/19 19:16 Laboratory results interpreted by me: 03/07/19 03/07/19 03/07/19 19:16 19:16 20:40 RBC 5.43 H Hgb 15.9 H RDW 14.3 H Carbon Dioxide 20 L BUN 21 H Calcium 11.8 H Urine Ketones 20 H Urine Blood LARGE H Ur Leukocyte Esterase TRACE H - Diagnostic Test Radiology reviewed: Reports reviewed Discharge - Discharge Clinical Impression: Ureteral colic Condition: Good Disposition: HOME, SELF-CARE Instructions: Kidney Stone ([facility]) Prescriptions: Tamsulosin HCl [Flomax 0.4 mg Cap.sr] 0.4 mg PO DAILY #7 cap.sr.24h Oxycodone HCl/Acetaminophen [Percocet 5-325 mg Tablet] 1 tab PO ASDIR PRN #15 tab PRN Reason: Ondansetron [Zofran Odt 4 mg Tablet] 1 - 2 tab PO Q4H PRN #15 tab.rapdis PRN Reason: For Nausea/Vomiting Referrals: KHADIJAH GOODMAN DO [ACTIVE STAFF] - Follow up as needed PERLA SAMS MD [NO LOCAL MD] - Follow up as needed
[2019-03-07 21:16] LABS: AMORPHOUS SEDIMENT,URINE TRACE /HPF; APPEARANCE,URINE SLIGHTLY-CLOUDY; BILIRUBIN,URINE NEGATIVE (NEGATIVE); COLOR,URINE YELLOW; GLUCOSE, URINE NEGATIVE (NEGATIVE); KETONES,URINE 20 mg/dL (NEGATIVE); LEUKOCYTE ESTERASE,URINE TRACE (NEGATIVE); NITRITE,URINE NEGATIVE (NEGATIVE); PROTEIN,URINE NEGATIVE (NEGATIVE); URINE SPECIFIC GRAVITY 1.017; UROBILINOGEN,URINE NEGATIVE mg/dL (<2.0)
[2019-03-07 22:55] VITALS: BP 126/79
== END 2019-03-07 22:46 | disposition home or self-care (01) ==
LOC: ER 18:43
DX: N23 Unspecified renal colic (principal); R11.0 Nausea; E11.9 Type 2 diabetes mellitus without complications
CPT/HCPCS: 36415; 84703; 85025; 80053; 81001; 74176; J1885; J2270; J2405; J7030; J7040; 87086

== ENCOUNTER 2019-04-06 16:17 | Emergency (ER) | payer OTHER ==
--- NOTE | 2019-04-06 16:32 | ER Document Report ---
ED Medical Screen (RME) - General Chief Complaint: Flank Pain Stated Complaint: LEFT FLANK PAIN Time Seen by Provider: 04/06/19 16:29 Primary Care Provider: JOSH ROSARIO MD [Primary Care Provider] - Follow up as needed Mode of Arrival: Ambulatory Information source: Patient Notes: 38-year-old female presented to ED for left flank pain since this morning. She has had difficulty urinating for 2 days. She states she was recently diagnosed with a kidney stone and she does not think she has passed it. She states she has not followed up with a provider since her previous visit. She states she does not smoke use alcohol or drugs. She takes metformin for insulin resistance, Effexor for migraines, spironolactone for short hair she takes an injection for migraines. I have greeted and performed a rapid initial assessment of this patient. A comprehensive ED assessment and evaluation of the patient, analysis of test results and completion of medical decision making process will be conducted by an additional ED providers. TRAVEL OUTSIDE OF THE [place] IN LAST 30 DAYS: No - Related Data Allergies/Adverse Reactions: No Known Allergies Allergy (Verified 03/07/19 18:51) Past Medical History Neurological Medical History: Reports: Hx Migraine Endocrine Medical History: Reports: Hx Diabetes Mellitus Type 2 Renal/ Medical History: Denies: Hx Peritoneal Dialysis Past Surgical History: Reports: Hx Nose Surgery, Hx Orthopedic Surgery - knee - Immunizations Hx Diphtheria, Pertussis, Tetanus Vaccination: Yes Physical Exam - Vital signs Vitals: Temp Pulse Resp BP Pulse Ox 98 F 100 26 H 164/88 H 100 04/06/19 16:26 04/06/19 16:26 04/06/19 16:26 04/06/19 16:26 04/06/19 16:26 Course - Vital Signs Vital signs: Temp Pulse Resp BP Pulse Ox 98 F 100 26 H 164/88 H 100 04/06/19 16:26 04/06/19 16:26 04/06/19 16:26 04/06/19 16:26 04/06/19 16:26 Doctor's Discharge - Discharge Referrals: JOSH ROSARIO MD [Primary Care Provider] - Follow up as needed
[2019-04-06 16:55] LABS: APPEARANCE,URINE CLOUDY; BILIRUBIN,URINE NEGATIVE (NEGATIVE); COLOR,URINE YELLOW; GLUCOSE, URINE NEGATIVE (NEGATIVE); KETONES,URINE NEGATIVE (NEGATIVE); PROTEIN,URINE NEGATIVE (NEGATIVE); UROBILINOGEN,URINE NEGATIVE mg/dL (<2.0)
[2019-04-06 17:00] LABS: AMORPHOUS SEDIMENT,URINE 1 /HPF
--- NOTE | 2019-04-06 18:02 | RADIOLOGY REPORT (SQ) ---
EXAM DESCRIPTION: U/S RETROPERITON (RENAL/AORTA) COMPLETED DATE/TIME: 04/06/2019 5:42 pm REASON FOR STUDY: Left flank pain history kidney stones COMPARISON: None. TECHNIQUE: Dynamic and static grayscale images acquired of the kidneys and bladder and recorded on P ACS. Additional selected color Doppler and spectral images recorded. LIMITATIONS: None. FINDINGS: RIGHT KIDNEY: Normal size. Normal echogenicity. No solid or suspicious masses. No hydronep hrosis. No calcifications. LEFT KIDNEY: Normal size. Normal echogenicity. No solid or suspicious masses. Mild pelviectasis. No calcifications. BLADDER: Not visualized. OTHER FINDINGS: No other significant finding. IMPRESSION: No definitive urinary calcifications identified, although an obstructing left ureterolit h is considered given mild left pelviectasis TECHNICAL DOCUMENTATION: JOB ID: [id number] [employer]- All Rights Reserved Reading location - IP/workstation name: [email or web address]
--- NOTE | 2019-04-06 18:41 | ER Document Report ---
ED General - General Chief Complaint: Flank Pain Stated Complaint: LEFT FLANK PAIN Time Seen by Provider: 04/06/19 16:29 Primary Care Provider: JOSH ROSARIO MD [Primary Care Provider] - Follow up as needed Mode of Arrival: Ambulatory TRAVEL OUTSIDE OF THE [place] IN LAST 30 DAYS: No - Related Data Allergies/Adverse Reactions: No Known Allergies Allergy (Verified 04/06/19 16:32) Home Medications: metformin. effexor. spironalactone Past Medical History - General Information source: Patient - Social History Smoking Status: Never Smoker Chew tobacco use (# tins/day): No Frequency of alcohol use: None Drug Abuse: None Family History: Other Patient has suicidal ideation: No Patient has homicidal ideation: No Neurological Medical History: Reports: Hx Migraine Endocrine Medical History: Reports: Hx Diabetes Mellitus Type 2 Renal/ Medical History: Denies: Hx Peritoneal Dialysis Past Surgical History: Reports: Hx Nose Surgery, Hx Orthopedic Surgery - knee - Immunizations Hx Diphtheria, Pertussis, Tetanus Vaccination: Yes Physical Exam - Vital signs Vitals: Temp Pulse Resp BP Pulse Ox 98 F 100 26 H 164/88 H 100 04/06/19 16:26 04/06/19 16:26 04/06/19 16:26 04/06/19 16:26 04/06/19 16:26 Course - Vital Signs Vital signs: Temp Pulse Resp BP Pulse Ox 98 F 100 26 H 164/88 H 100 04/06/19 16:26 04/06/19 16:26 04/06/19 16:26 04/06/19 16:26 04/06/19 16:26 - Laboratory Laboratory results interpreted by me: 04/06/19 16:34 Urine Blood MODERATE H Discharge - Discharge Referrals: JOSH ROSARIO MD [Primary Care Provider] - Follow up as needed
[2019-04-06] MEDS ORDERED: ACETAMINOPHEN 325 MG TABLET PO ONE (19:00)
[2019-04-06] MEDS ORDERED: KETOROLAC TROMETHAMINE INJ/PF 30 MG/1 ML SDV IV ONE (19:00)
[2019-04-06] MEDS ORDERED: OXYCODONE HCL IR 5 MG TABLET PO PRN (19:30)
[2019-04-06] MEDS ORDERED: NORMAL SALINE 1000 ML 1,000 ML IV ONE ×2 (19:51→22:46)
[2019-04-06] MEDS ORDERED: FENTANYL CITRATE INJ/PF 100 MCG/2 ML AMPUL IV ONE ×2 (19:55→21:40)
[2019-04-06 20:09] LABS: ABSOLUTE BASOPHILS # (AUTO) 0.1 10^3/uL (0.0-0.2); ABSOLUTE EOSINOPHILS # (AUTO) 0.1 10^3/uL (0.0-0.6); ABSOLUTE LYMPHOCYTES (AUTO) 1.8 10^3/uL (0.5-4.7); ABSOLUTE MONOCYTES (AUTO) 0.8 10^3/uL (0.1-1.4); ABSOLUTE NEUT (AUTO) 12.5 10^3/uL (1.7-8.2); BASOPHILS % (AUTO) 0.9 % (0-2); EOSINOPHILS % (AUTO) 0.9 % (0-6); HEMATOCRIT 45.8 % (36.0-47.0); HEMOGLOBIN 15.4 g/dL (12.0-15.5); MEAN CORPUSCULAR HEMOGLOBIN 29.1 pg (27.0-33.4); MEAN CORPUSCULAR HGB CONC 33.6 g/dL (32.0-36.0); MEAN CORPUSCULAR VOLUME 87 fl (80-97); MONOCYTES % (AUTO) 5.5 % (3-13); PLATELET COUNT 229 10^3/uL (150-450); RED BLOOD COUNT 5.29 10^6/uL (3.72-5.28); RED CELL DISTRIBUTION WIDTH 13.8 % (11.5-14.0); SEGMENTED NEUTROPHILS % (AUTO) 80.7 % (42-78); TOTAL CELLS COUNTED % (AUTO) 100 %; WHITE BLOOD COUNT 15.4 10^3/uL (4.0-10.5)
--- NOTE | 2019-04-06 21:28 | RADIOLOGY REPORT (SQ) ---
EXAM DESCRIPTION: CT ABDOMEN PELVIS WITHOUT IV CONTRAST COMPLETED DATE/TME: 04/06/2019 19:55 CLINICAL HISTORY: 38 years Female eval stone, flank pain COMPARISON: 03/07/2019 TECHNIQUE: Contiguous axial images obtained through the abdomen and pelvis without IV contrast. Reformatted images obtained. This exam was performed according to our department optimization program which includes automated exposure control, adjustment of the mA and/or kv according to patient size and/or use of iterative reconstruction technique. FINDINGS: The lung bases are clear. The liver appears unremarkable. The spleen and pancreas appear unremarkable. No adrenal masses. Unremarkable right kidney. There are nonobstructing left renal stones. Moderate left hydronephrosis. There is an 8 mm obstructing stone in the distal ureter. This has moved when compared to the previous exam. Stone is approximately 5 to 6 mm from the UVJ. The gallbladder is visualized. No aneurysmal dilatation of the aorta. No bowel obstruction. Unremarkable appendix. No free pelvic fluid. IUD in the uterus. Left adnexal cyst has resolved when compared to the previous. Small simple appearing right ovarian cyst measuring 2.9 cm. This is almost certainly benign and no follow-up is recommended. IMPRESSION: Moderate left hydronephrosis with the obstructing 8 mm stone now just cephalad to the UVJ Additional nonobstructing left renal calculi
[2019-04-06 21:36] LABS: ALBUMIN 3.7 g/dL (3.5-5.0); ALKALINE PHOSPHATASE 68 U/L (38-126); ANION GAP 10 (5-19); ASPARTATE AMINO TRANSFERASE 18 U/L (14-36); BILIRUBIN,DIRECT 0.1 mg/dL (0.0-0.4); BILIRUBIN,TOTAL 0.2 mg/dL (0.2-1.3); BLOOD UREA NITROGEN 16 mg/dL (7-20); CALCIUM 10.1 mg/dL (8.4-10.2); CARBON DIOXIDE 20 mmol/L (22-30); CHLORIDE 112 mmol/L (98-107); GLUCOSE 93 mg/dL (75-110); POTASSIUM 4.1 mmol/L (3.6-5.0); TOTAL PROTEIN 6.1 g/dL (6.3-8.2)
--- NOTE | 2019-04-06 22:06 | ER Document Report ---
ED GI/ - General Chief Complaint: Flank Pain Stated Complaint: LEFT FLANK PAIN Time Seen by Provider: 04/06/19 16:29 Primary Care Provider: JOSH ROSARIO MD [Primary Care Provider] - Follow up as needed Mode of Arrival: Ambulatory Notes: Patient is a 38-year-old female who presents the emergency department with a chief complaint of left flank pain. Symptoms started today. She has had some urinary urgency for the past 2 days. Patient was diagnosed with a kidney stone last visit she was here in February. Patient states that the pain is in her left flank area. States that she thinks she is passing the kidney stone. Patient is currently on metformin, Effexor, and spironolactone. Patient denies any fever. TRAVEL OUTSIDE OF THE [place] IN LAST 30 DAYS: No - Related Data Allergies/Adverse Reactions: No Known Allergies Allergy (Verified 04/06/19 16:32) Home Medications: metformin. effexor. spironalactone Past Medical History - General Information source: Patient - Social History Smoking Status: Never Smoker Chew tobacco use (# tins/day): No Frequency of alcohol use: None Drug Abuse: None Family History: Other Patient has suicidal ideation: No Patient has homicidal ideation: No Neurological Medical History: Reports: Hx Migraine Endocrine Medical History: Reports: Hx Diabetes Mellitus Type 2 Renal/ Medical History: Denies: Hx Peritoneal Dialysis Past Surgical History: Reports: Hx Nose Surgery, Hx Orthopedic Surgery - knee - Immunizations Hx Diphtheria, Pertussis, Tetanus Vaccination: Yes Review of Systems - Review of Systems Notes: REVIEW OF SYSTEMS: CONSTITUTIONAL : Denies recent illness. Denies recent unintentional weight loss. Denies fever, chills, or sweats. EENT: Denies eye, ear, throat, or mouth pain, discharge, or symptoms. Denies nasal or sinus congestion. CARDIOVASCULAR: Denies chest pain. RESPIRATORY: Denies shortness of breath, cough, congestion, difficulty breathing, or wheezing. GASTROINTESTINAL: Denies nausea, vomiting, and diarrhea. Denies abdominal pain. Denies constipation. GENITOURINARY: See HPI. MUSCULOSKELETAL: See HPI. Denies joint pain or swelling. SKIN: Denies rash, itchiness, or lesions HEMATOLOGIC : Denies easy bruising or bleeding. LYMPHATIC: Denies swollen, painful, enlarged glands. NEUROLOGICAL: Denies no numbness or tingling denies weakness. Denies headache. Denies altered mental status. Denies alteration in speech. PSYCHIATRIC: Denies stress, anxiety, alteration in sleep patterns, or depression. All other systems reviewed and negative. Physical Exam - Vital signs Vitals: Temp Pulse Resp BP Pulse Ox 98 F 100 26 H 164/88 H 100 04/06/19 16:26 04/06/19 16:26 04/06/19 16:26 04/06/19 16:26 04/06/19 16:26 - Notes Notes: PHYSICAL EXAMINATION: GENERAL: Appears well, healthy, well-nourished, no acute distress. HEAD: Normocephalic, atraumatic. EYES: PERRL, conjunctiva normal, all extraocular movements intact, sclera nonicteric ENT: Moist mucous membranes. NECK: Supple, no noticeable swelling, redness, rash. Normal range of motion. LUNGS: Equal breath sounds bilaterally and clear to auscultation. No wheezes rales or rhonchi. CARDIOVASCULAR: S1-S2, regular rate, regular rhythm. Radial pulses 2+, normal. ABDOMEN: Normoactive bowel sounds. Soft, nontender, no guarding, no rebound tenderness, and no masses palpated. EXTREMITIES: Normal strength and range of motion, no pitting or edema. No cyanosis. NEUROLOGICAL: Moves all extremities upon command. Strength 5/5 in all extremiti es. PSYCH: Normal mood, normal affect. SKIN: Warm, dry. No rash, lesions, ulcerations noted. Normal skin turgor. BACK; left CVA tenderness Course - Re-evaluation Re-evalutation: 04/06/19 22:08 Patient's chemistries show CO2 of 20. hCG is negative. Hematology shows leukocytosis of 15.4, most likely due to her passing her stone. Patient is not anemic. Her urine shows a moderate amount of blood. Patient does have hydrour eter and hydronephrosis. Patient is still having flank pain. She will receive another dose of fentanyl. Patient states that I have called [facility] to get the patient transferred, as there is no urology concrete polisher at this time. 04/06/19 22:[address] Oliver Doll, the hospitalist at [facility]. Patient will be admitted to the medical floor for observation. Urology will follow the patient. 04/07/19 00:18 Transport team is at bedside. I have evaluated the patient. Her vital signs are stable. Patient is stable for transport to [facility]. She will receive another dose of Dilaudid before she goes on transport. - Vital Signs Vital signs: Temp Pulse Resp BP Pulse Ox 97.8 F 82 18 144/74 H 94 04/06/19 23:37 04/06/19 23:37 04/06/19 23:37 04/06/19 23:37 04/06/19 23:37 - Laboratory Result Diagrams: 04/06/19 20:02 04/06/19 21:05 Laboratory results interpreted by me: 04/06/19 04/06/19 04/06/19 16:34 20:02 21:05 WBC 15.4 H RBC 5.29 H Lymph % (Auto) 12.0 L Absolute Neuts (auto) 12.5 H Seg Neutrophils % 80.7 H Chloride 112 H Carbon Dioxide 20 L Total Protein 6.1 L Urine Blood MODERATE H Discharge - Discharge Clinical Impression: Urinary tract obstruction by kidney stone Hydronephrosis Qualifiers: Hydronephrosis type: unspecified Qualified Code(s): N13.30 - Unspecified hydronephrosis Condition: Stable Disposition: [facility] Admitting Provider: Dr. Doll Referrals: JOSH ROSARIO MD [Primary Care Provider] - Follow up as needed
[2019-04-06] MEDS ORDERED: HYDROMORPHONE HCL INJ/PF 2 MG/ML AMPULE IV ONE (22:47)
[2019-04-07] MEDS ORDERED: HYDROMORPHONE HCL INJ/PF 2 MG/ML AMPULE IV ONE (00:18)
[2019-04-07 00:27] VITALS: BP 137/64
== END 2019-04-07 00:28 | disposition short-term general hospital (02) ==
LOC: ER 16:17
DX: N20.0 Calculus of kidney (principal); N13.30 Unspecified hydronephrosis; N13.8 Other obstructive and reflux uropathy; R10.9 Unspecified abdominal pain; E11.9 Type 2 diabetes mellitus without complications; Z79.84 Long term (current) use of oral hypoglycemic drugs; Z87.442 Personal history of urinary calculi
CPT/HCPCS: 36415; 84703; 85025; 80053; 81001; 76770; 74176; J3010; J1885; J1170 ×2; J7030